=== PATIENT | female | born 1960 | race Caucasian/White ===

== ENCOUNTER 2021-06-04 11:54 | Inpatient (IN) ==
[2021-06-04] MEDS ORDERED: MORPHINE 2 MG/1 ML SYRINGE IV PRN (11:57)
[2021-06-04] MEDS ORDERED: GLUCAGON 1 MG VIAL IM PRN (14:55)
[2021-06-04] MEDS ORDERED: DEXTROSE 50% 25 GM/50 ML VIAL IV PRN (14:55)
[2021-06-04] MEDS: SODIUM CHLORIDE 0.9% 1,000 ML IV SCH (16:46)
[2021-06-04] MEDS: INSULIN LISPRO 100 UNIT/ML SUBCUT SCH (16:47)
[2021-06-04] MEDS: PIPERACILLIN/TAZOBACTAM 3,375 MG in SODIUM CHLORIDE 0.9% 100 ML IV SCH (16:47)
[2021-06-04] MEDS: DOCUSATE SODIUM 100 MG CAPSULE PO SCH (21:04)
[2021-06-04] MEDS: ENOXAPARIN 40 MG/0.4 ML SYRINGE SUBCUT SCH (21:04)
[2021-06-05] MEDS: PIPERACILLIN/TAZOBACTAM 3,375 MG in SODIUM CHLORIDE 0.9% 100 ML IV SCH ×3 (01:31→17:19)
[2021-06-05 05:17] LABS: Basophils # 0.1 10*3/uL (0.0-0.2); Basophils % 0.3 % (0.0-0.8); Eosinophils # 0.1 10*3/uL (0.0-0.87); Eosinophils % 0.4 % (0.00-10.9); Hematocrit 29.1 VOL% (35.7-47.0); Hemoglobin 9.8 GM/DL (12.0-16.0); Immature Granulocytes % 0.8 %; Immature Granulocytes Absolute 0.16 #; Lymphocytes # 2.1 10*3/uL (1.4-4.0); Lymphocytes % 10.2 % (21.3-54.2); Mean Corpuscular HGB Conc 33.7 GM/DL (32-36); Mean Corpuscular Volume 78.9 FL (87-102); Mean Platelet Volume 8.9 FL (9.6-12.0); Neutrophils % 80.3 % (38.7-73.9); Platelet Count 382 T/CUMM (130-400); Red Blood Count 3.69 MC/CUMM (3.8-5.5); Red Cell Distribution Width 15.1 % (9.3-17.3); White Blood Count 20.5 T/CUMM (4-12)
[2021-06-05 05:45] LABS: Calcium 7.6 MG/DL (8.5-10.1); Osmolality,Calculated 271.8 MOS/KG (273-304); Potassium 3.2 MMOL/L (3.5-5.1)
[2021-06-05 05:48] LABS: Hypochromasia 1+; Lymphocytes 9 % (20-55); Microcytosis 1+; Platelet Estimate Adequate; Segmented Neutrophils 87 % (50-85); Total Cells Counted 100
[2021-06-05] MEDS: PANTOPRAZOLE 40 MG TABLET PO SCH (06:20)
[2021-06-05] MEDS: SODIUM CHLORIDE 0.9% 1,000 ML IV SCH ×3 (06:45→15:41)
[2021-06-05] MEDS: DOCUSATE SODIUM 100 MG CAPSULE PO SCH ×2 (10:36→20:46)
[2021-06-05] MEDS: INSULIN LISPRO 100 UNIT/ML SUBCUT SCH ×2 (11:09→17:20)
[2021-06-05] MEDS: POTASSIUM CHLORIDE 20 MEQ TABLET PO PRN ×4 (11:09→18:42)
[2021-06-05] MEDS: busPIRone 15 MG TABLET PO SCH ×2 (15:41→20:46)
[2021-06-05] MEDS: ONDANSETRON 4 MG/2 ML VIAL IV PRN (17:06)
[2021-06-05] MEDS: buPROPion XL 150 MG TABLET PO SCH (20:46)
[2021-06-05] MEDS: ENOXAPARIN 40 MG/0.4 ML SYRINGE SUBCUT SCH (20:46)
[2021-06-06] MEDS: PIPERACILLIN/TAZOBACTAM 3,375 MG in SODIUM CHLORIDE 0.9% 100 ML IV SCH ×3 (01:07→16:31)
[2021-06-06 05:06] LABS: Basophils # 0.1 10*3/uL (0.0-0.2); Basophils % 0.3 % (0.0-0.8); Eosinophils # 0.1 10*3/uL (0.0-0.87); Eosinophils % 0.4 % (0.00-10.9); Hematocrit 27.6 VOL% (35.7-47.0); Hemoglobin 9.2 GM/DL (12.0-16.0); Immature Granulocytes % 0.9 %; Lymphocytes # 2.2 10*3/uL (1.4-4.0); Lymphocytes % 9.4 % (21.3-54.2); Mean Corpuscular HGB Conc 33.3 GM/DL (32-36); Mean Corpuscular Volume 78.9 FL (87-102); Mean Platelet Volume 8.8 FL (9.6-12.0); Monocytes % 8.3 % (1.7-12.7); Neutrophils % 80.7 % (38.7-73.9); Platelet Count 389 T/CUMM (130-400); Red Cell Distribution Width 15.4 % (9.3-17.3); White Blood Count 22.9 T/CUMM (4-12)
[2021-06-06 05:33] LABS: Calcium 7.6 MG/DL (8.5-10.1); Osmolality,Calculated 273.8 MOS/KG (273-304); Potassium 3.5 MMOL/L (3.5-5.1)
[2021-06-06] MEDS: LEVOTHYROXINE 112 MCG TABLET PO SCH (05:57)
[2021-06-06] MEDS: PANTOPRAZOLE 40 MG TABLET PO SCH (05:57)
[2021-06-06] MEDS: INSULIN LISPRO 100 UNIT/ML SUBCUT SCH ×3 (08:27→16:34)
[2021-06-06] MEDS: CITALOPRAM 40 MG TABLET PO SCH (08:28)
[2021-06-06] MEDS: busPIRone 15 MG TABLET PO SCH ×3 (08:28→20:11)
[2021-06-06] MEDS: SIMVASTATIN 10 MG TABLET PO SCH (08:29)
[2021-06-06] MEDS: POTASSIUM CHLORIDE 10 MEQ TABLET PO SCH (08:29)
[2021-06-06 08:56] LABS: Bacteria,Urine Occasional /HPF (Few); Bilirubin,Urine Negative (Negative); Blood, Urine Small mg/dL (Negative); Glucose,Urine (UA) 50 mg/dL (Negative); Ketones,Urine Negative (Negative); Nitrite,Urine Negative (Negative); Protein,Urine 100 MG/DL; RBC,Urine 3 /HPF (0-4); Squamous Epithelial Cell,Urine Occasional /HPF (0-10); Urine Appearance CLEAR (Clear); Urine Color Straw (Yellow); Urine Specific Gravity 1.005 (1.001-1.035); Urine Urobilinogen < 2.0 EU/DL (0.2-1.0)
[2021-06-06] MEDS ORDERED: LOSARTAN 50 MG TABLET PO SCH (09:00)
[2021-06-06] MEDS: SODIUM CHLORIDE 0.9% 1,000 ML IV SCH (09:15)
[2021-06-06] MEDS: DOCUSATE SODIUM 100 MG CAPSULE PO SCH ×2 (09:23→20:11)
[2021-06-06] MEDS ORDERED: FUROSEMIDE 20 MG/2 ML VIAL IV ONE (10:02)
[2021-06-06] MEDS ORDERED: POTASSIUM CHLORIDE 20 MEQ TABLET PO ONE (10:03)
[2021-06-06] MEDS: ACETAMINOPHEN 325 MG TABLET PO PRN (15:13)
[2021-06-06] MEDS: buPROPion XL 150 MG TABLET PO SCH (20:10)
[2021-06-06] MEDS: ENOXAPARIN 40 MG/0.4 ML SYRINGE SUBCUT SCH (20:11)
[2021-06-07] MEDS: PIPERACILLIN/TAZOBACTAM 3,375 MG in SODIUM CHLORIDE 0.9% 100 ML IV SCH ×3 (00:58→16:51)
[2021-06-07] MEDS: ONDANSETRON 4 MG/2 ML VIAL IV PRN (02:49)
[2021-06-07 05:57] LABS: Basophils # 0.1 10*3/uL (0.0-0.2); Basophils % 0.2 % (0.0-0.8); Eosinophils # 0.1 10*3/uL (0.0-0.87); Eosinophils % 0.5 % (0.00-10.9); Hematocrit 25.7 VOL% (35.7-47.0); Hemoglobin 8.5 GM/DL (12.0-16.0); Immature Granulocytes % 0.8 %; Lymphocytes % 8.1 % (21.3-54.2); Mean Corpuscular HGB Conc 33.1 GM/DL (32-36); Mean Corpuscular Volume 79.3 FL (87-102); Mean Platelet Volume 8.6 FL (9.6-12.0); Monocytes % 7.7 % (1.7-12.7); Neutrophils % 82.7 % (38.7-73.9); Platelet Count 394 T/CUMM (130-400); Red Blood Count 3.24 MC/CUMM (3.8-5.5); Red Cell Distribution Width 15.5 % (9.3-17.3)
[2021-06-07 06:18] LABS: Eosinophils 2 % (0-10); Hypochromasia Slight; Lymphocytes 4 % (20-55); Microcytosis Slight; Platelet Estimate Increased; Segmented Neutrophils 88 % (50-85); Total Cells Counted 100
[2021-06-07] MEDS: PANTOPRAZOLE 40 MG TABLET PO SCH (06:20)
[2021-06-07] MEDS: LEVOTHYROXINE 112 MCG TABLET PO SCH (06:20)
[2021-06-07 06:30] LABS: Calcium 7.5 MG/DL (8.5-10.1); Osmolality,Calculated 277.5 MOS/KG (273-304); Potassium 3.4 MMOL/L (3.5-5.1)
[2021-06-07 08:46] LABS: Ferritin 91.9 ng/ml (8-252)
[2021-06-07] MEDS: busPIRone 15 MG TABLET PO SCH ×3 (09:07→20:13)
[2021-06-07] MEDS: CITALOPRAM 40 MG TABLET PO SCH (09:07)
[2021-06-07] MEDS: POTASSIUM CHLORIDE 10 MEQ TABLET PO SCH (09:07)
[2021-06-07] MEDS: SIMVASTATIN 10 MG TABLET PO SCH (09:07)
[2021-06-07] MEDS: INSULIN LISPRO 100 UNIT/ML SUBCUT SCH ×2 (10:31→18:23)
[2021-06-07] MEDS: DOCUSATE SODIUM 100 MG CAPSULE PO SCH ×2 (10:31→20:17)
[2021-06-07] MEDS: ACETAMINOPHEN 325 MG TABLET PO PRN ×2 (12:17→20:14)
[2021-06-07] MEDS: buPROPion XL 150 MG TABLET PO SCH (20:13)
[2021-06-07] MEDS: ENOXAPARIN 40 MG/0.4 ML SYRINGE SUBCUT SCH (20:14)
[2021-06-08] MEDS: PIPERACILLIN/TAZOBACTAM 3,375 MG in SODIUM CHLORIDE 0.9% 100 ML IV SCH ×3 (02:14→17:46)
[2021-06-08] MEDS: SODIUM CHLORIDE 0.9% 1,000 ML IV SCH (02:15)
[2021-06-08] MEDS: LEVOTHYROXINE 150 MCG TABLET PO SCH ×2 (05:08→05:30)
[2021-06-08] MEDS: PANTOPRAZOLE 40 MG TABLET PO SCH ×2 (05:08→05:30)
[2021-06-08 05:37] LABS: Basophils # 0.1 10*3/uL (0.0-0.2); Basophils % 0.3 % (0.0-0.8); Eosinophils # 0.2 10*3/uL (0.0-0.87); Eosinophils % 0.8 % (0.00-10.9); Hematocrit 26.6 VOL% (35.7-47.0); Hemoglobin 8.7 GM/DL (12.0-16.0); Immature Granulocytes % 0.8 %; Immature Granulocytes Absolute 0.17 #; Lymphocytes # 2.2 10*3/uL (1.4-4.0); Lymphocytes % 10.3 % (21.3-54.2); Mean Corpuscular HGB Conc 32.7 GM/DL (32-36); Mean Corpuscular Volume 80.6 FL (87-102); Mean Platelet Volume 8.8 FL (9.6-12.0); Monocytes % 7.2 % (1.7-12.7); Neutrophils % 80.6 % (38.7-73.9); Platelet Count 462 T/CUMM (130-400); Red Cell Distribution Width 15.8 % (9.3-17.3); White Blood Count 21.4 T/CUMM (4-12)
[2021-06-08 06:08] LABS: Platelet Estimate Normal
[2021-06-08 06:09] LABS: Anisocytosis 1+
[2021-06-08 06:45] LABS: Alanine Aminotransferase 9 U/L (13-56); Albumin 1.1 G/DL (3.4-5.0); Alkaline Phosphatase 116 U/L (45-117); Aspartate Amino Transferase 17 U/L (0-37); Bilirubin,Direct < 0.100 MG/DL (0.0-0.20); Bilirubin,Indirect 0.3 MG/DL (0.0-1.0); Bilirubin,Total < 0.39 MG/DL (0.20-1.00); Total Protein 6.2 G/DL (6.4-8.2)
[2021-06-08] MEDS ORDERED: LACTATED RINGERS 1,000 ML IV SCH (08:00)
[2021-06-08 08:16] LABS: Calcium 7.9 MG/DL (8.5-10.1); Osmolality,Calculated 278.4 MOS/KG (273-304); Potassium 3.4 MMOL/L (3.5-5.1)
[2021-06-08] MEDS: INSULIN LISPRO 100 UNIT/ML SUBCUT SCH ×2 (08:39→17:48)
[2021-06-08] MEDS: ONDANSETRON 4 MG/2 ML VIAL IV PRN (13:38)
[2021-06-08] MEDS ORDERED: propofoL 200 MG/20 ML VIAL IV ONE (13:58)
[2021-06-08] MEDS ORDERED: LIDOCAINE 2% 5 ML VIAL ONE (13:58)
[2021-06-08 14:23] LABS: Folate 9.78 NG/ML (5.38-24.0)
[2021-06-08] MEDS: POTASSIUM CHLORIDE 10 MEQ TABLET PO SCH (14:25)
[2021-06-08] MEDS: SIMVASTATIN 10 MG TABLET PO SCH (14:25)
[2021-06-08] MEDS: busPIRone 15 MG TABLET PO SCH ×3 (14:25→21:00)
[2021-06-08] MEDS: CITALOPRAM 40 MG TABLET PO SCH (14:25)
[2021-06-08] MEDS: DOCUSATE SODIUM 100 MG CAPSULE PO SCH ×2 (14:25→21:09)
[2021-06-08] MEDS: ENOXAPARIN 40 MG/0.4 ML SYRINGE SUBCUT SCH (21:08)
[2021-06-08] MEDS: buPROPion XL 150 MG TABLET PO SCH (21:09)
[2021-06-09] MEDS: PIPERACILLIN/TAZOBACTAM 3,375 MG in SODIUM CHLORIDE 0.9% 100 ML IV SCH ×2 (02:26→08:42)
[2021-06-09 05:00] LABS: Basophils % 0.2 % (0.0-0.8); Eosinophils # 0.1 10*3/uL (0.0-0.87); Eosinophils % 0.5 % (0.00-10.9); Hematocrit 27.4 VOL% (35.7-47.0); Hemoglobin 8.9 GM/DL (12.0-16.0); Immature Granulocytes % 0.8 %; Immature Granulocytes Absolute 0.15 #; Lymphocytes # 2.1 10*3/uL (1.4-4.0); Lymphocytes % 11.4 % (21.3-54.2); Mean Corpuscular HGB Conc 32.5 GM/DL (32-36); Mean Platelet Volume 8.6 FL (9.6-12.0); Monocytes % 7.2 % (1.7-12.7); Neutrophils % 79.9 % (38.7-73.9); Platelet Count 458 T/CUMM (130-400); Red Blood Count 3.47 MC/CUMM (3.8-5.5); Red Cell Distribution Width 15.9 % (9.3-17.3); White Blood Count 18.2 T/CUMM (4-12)
[2021-06-09 05:26] LABS: Alanine Aminotransferase 12 U/L (13-56); Alkaline Phosphatase 117 U/L (45-117); Aspartate Amino Transferase 14 U/L (0-37); Bilirubin,Total < 0.39 MG/DL (0.20-1.00); Blood Urea Nitrogen 16 MG/DL (7-18); Calcium 7.6 MG/DL (8.5-10.1); Carbon Dioxide 22 MMOL/L (21-32); Estimated Glom Filtration Rate 34 ML/MIN; Glucose 87 MG/DL (74-106); Osmolality,Calculated 272.8 MOS/KG (273-304); Potassium 3.2 MMOL/L (3.5-5.1); Sodium 137 MMOL/L (136-145)
[2021-06-09] MEDS: PANTOPRAZOLE 40 MG TABLET PO SCH (06:22)
[2021-06-09] MEDS: LEVOTHYROXINE 150 MCG TABLET PO SCH (06:22)
[2021-06-09] MEDS: busPIRone 15 MG TABLET PO SCH ×2 (08:41→14:44)
[2021-06-09] MEDS: POTASSIUM CHLORIDE 20 MEQ TABLET PO PRN (08:41)
[2021-06-09] MEDS: POTASSIUM CHLORIDE 10 MEQ TABLET PO SCH (08:41)
[2021-06-09] MEDS: CITALOPRAM 40 MG TABLET PO SCH (08:41)
[2021-06-09] MEDS: SODIUM CHLORIDE 0.9% 1,000 ML IV SCH (08:42)
[2021-06-09] MEDS: SIMVASTATIN 10 MG TABLET PO SCH (08:42)
[2021-06-09] MEDS: INSULIN LISPRO 100 UNIT/ML SUBCUT SCH (10:03)
[2021-06-09] MEDS: DOCUSATE SODIUM 100 MG CAPSULE PO SCH (10:04)
[2021-06-09 16:26] VITALS: BP 161/66
== END 2021-06-09 17:27 | disposition home or self-care (01) | DRG 392 ==
LOC: N.5E 12:39
PROVIDERS: ADMIT Internal Medicine; ATTEND Internal Medicine